=== PATIENT | male | born 1980 ===

== ENCOUNTER 2024-04-27 09:52 | Outpatient (REF) | payer OTHER, SELFPAY ==
--- NOTE | ~2024-04-27 | XR_ITS ---
EXAMINATION: XR HIP, LEFT CLINICAL INFORMATION: Pain in the left hip COMPARISON: None available. TECHNIQUE: Two views of the left hip. FINDINGS: There is irregular lucency and sclerosis along the superior medial aspect of the humeral head measuring up to 4 cm transverse. There is some subchondral irregularity. There is also marginal osteophytes along the inferior aspect of the femoral head neck junction. Surrounding bones soft tissues unremarkable. XR/XR hip LT min 2V IMPRESSION: 1. Irregular lucency and sclerosis along the superior medial aspect of the humeral head. This could reflect avascular necrosis versus sequela of the osteoarthritis given the additional osteoarthritic change.. 2. Advanced osteoarthritis of left hip versus osteoarthritis with concomitant avascular necrosis. 3. MRI would likely help differentiating these possibilities if felt clinically necessary. Electronically signed by: Micheel May MD 05/21/2024 07:30 AM EDT
[2024-04-27 12:45] LABS: Appearance Urine Clear; Color Urine Yellow; Glucose Urine UA >=1000 mg/dL (Negative); Leukocyte Esterase Urine Negative (Negative); Nitrite Urine Negative (Negative); PH 5.5 (5.0-9.0); Specific Gravity - Urine 1.025 (1.005-1.025); UMIC TRIGGER UACC YES; Urine Blood Negative (Negative); Urine Ketones Negative (Negative); Urine Protein 100 (2+) mg/dL (Neg-Trace)
[2024-04-27 13:16] LABS: Bacteria Urine None Seen (None Seen); Hyaline Casts Urine 0-2 /LPF (0-2); RBC Urine 0-2 /HPF (0-2); Squamous Epithelial Cell Urine 0-2 /HPF (0-2); WBC Urine 0-5 /HPF (0-5)
== END 2024-04-27 09:53 | disposition home or self-care (01) ==
LOC: HO.XRAY 09:52
DX: M25.552 Pain in left hip (principal); R35.89 Other polyuria; M54.50 Low back pain, unspecified; R21 Rash and other nonspecific skin eruption; R03.0 Elevated blood-pressure reading, without diagnosis of hypertension; M79.673 Pain in unspecified foot; Z71.89 Other specified counseling
CPT/HCPCS: 73502; 81001; 96127; 99202

== ENCOUNTER 2024-04-27 09:52 | Outpatient (AMB) | payer OTHER, SELFPAY ==
[2024-04-27 09:56] VITALS: BP 162/100; PULSE 119; O2SAT 98; BMI 39.1
--- NOTE | 2024-04-27 09:56 | A.OFFPC_ITS ---
Vital Signs 04/27/24 09:56 Height 5 ft 6.93 in Weight 249 lb BMI 39.1 BP 162/100 H Blood Pressure Location Lt brachial Position Sitting Pulse 119 H Pulse Source Pulse Oximeter Pulse Oximetry (%) 98 Oxygen Delivery Method Room Air Intake Visit Reasons: establish care Home Health Billing Specialist Required: Yes Home Health Billing Specialist Language: Bhutanese Cresariah Home Health Billing Specialist Name: Compa [id number] Accompanied by: Self / Same As Patient Allergies No Known Allergies Allergy (Verified 04/27/24 10:14) Medication List - Last Reconciled 04/27/24 by Nissa Hernández PA-C No Known Home Meds Tobacco use date assessed: 04/27/24 Dental Screening Dental Screen Date: 04/27/24 Did you have a dental visit in the last 12 months?: No Did you have a dental problem in the last 6 months where you did not have access to dental care?: No Was dental information given to patient?: Patient has dentist HPI establish care HPI Details 44 year old male coming to the office fo r the first time. Home Health Billing Specialist was used for the duration of the appointment. Today he tells us he has multiple medical problems and he would like to address today. First being that he is having left-sided hip pain that radiates into the groin and the left thigh. He denies any injury in can identify any provoking factors. He has bilateral heel pain worse with walking denies any injury. He also mentions he has increased thirst and urination for several months and drinks 8-10 bottles of water per day and has to use the bathroom 5-6 times every night. He denies any urinary incontinence. Also mentions nonspecific back pain that is aggravated by his sleeping positions and resolves spontaneously. He has a chronic rash on the back of his head which has been present for 7-8 years and previously evaluated while in [facility] and given shampoo. Lastly he has a lump in his scrotum and has had this in the past and was treated inhaler with vitamin E but the lump has returned. [facility] Social History Housing Other:: Senior Care Patient Tobacco Use Status: Never used Tobacco Tobacco use type: Cigarette e-Cigarette/Vaping Use: Never Used service: No Current occupational status: unemployed Cognitive needs: No Hearing needs: No Vision needs: No Questionnaire PHQ-9 Over the last 2 weeks, how often have you been bothered by any of the following problems? 1. Little interest or pleasure in doing things: not at all 2. Feeling down, depressed, or hopeless: not at all 3. Trouble falling or staying asleep, or sleeping too much: not at all 4. Feeling tired or having little energy: not at all 5. Poor appetite or overeating: not at all 6. Feeling bad about yourself - or that you are a failure or have let yourself or your family down: not at all 7. Trouble concentrating on things, such as reading the newspaper or watching television: not at all 8. Moving or speaking so slowly that other people could have noticed. Or the opposite - being so fidgety or restless that you have been moving around a lot more than usual: not at all 9. Thoughts that you would be better off or of hurting yourself in some way: not at all Total score: 0 Depression Screening Interpretation: Negative Depression Screening Done: Yes 47602 - PHQ-9 Billing: Yes Source: Developed by Drs. Joni Haas, Beth Lou, Rakan Mauricio and colleagues, with an educational karan from [employer]. Thrive Questionnaire Date Thrive assessed: 04/27/24 I am a: Patient AUDIT C Alcohol Use Questionnaire (AUDIT-C) 1. How often do you have a drink containing alcohol?: Monthly or less 2. How many drinks containing alcohol do you have on a typical day when you are drinking?: 1 or 2 3. How often do you have six or more drinks on one occasion?: Never Total Score: 1 SKY-7 AMB Questionnaire SKY-7 Date SKY - 7 assessed: 04/27/24 Feeling nervous, anxious, or on edge: 0 = Not at all Not being able to stop or control worryin = Not at all Worrying too much about different things: 0 = Not at all Trouble relaxin = Not at all Being so restless that it is hard to sit still: 0 = Not at all Becoming easily annoyed or irritable: 0 = Not at all Feeling afraid as if something awful might happen: 0 = Not at all Total SKY-7 score (0-4 normal; 5-9 mild; 10-14 moderate; 15-21 severe): 0 Source: Developed by Beth Almeida B.W. Carmine, Rakan Mauricio and colleagues, with an educational karan from [employer]. SKY-7 Assessment Billing SKY-7 Assessment Tool: SKY-7 Assessment 14143 Review of Systems Const Denies body aches, Denies fatigue, Denies fever(s), Denies frequent falls, Denies headache(s) and Denies weakness Eyes Reports no additional complaints, Reports blurry vision and Denies change in vision ENT Denies dysphagia, Denies dizziness, Denies facial pain, Denies headache(s), Denies nasal congestion and Denies odynophagia Card Denies chest pain, Denies syncope, Denies irregular heart rhythm, Denies leg edema, Denies lightheadedness and Denies dyspnea Resp Denies cough and Denies dyspnea GI Denies abdominal pain, Denies constipation, Denies dysphagia, Denies dyspepsia, Denies diarrhea, Denies nausea, Denies odynophagia and Denies vomiting Denies dysuria, Reports nocturia, Reports testicular mass, Reports urinary frequency, Denies urinary hesitancy and Denies urinary urgency Musc Details: Bilateral heel pain and left hip pain. Reports back pain (Occasional) Skin/Breast Reports as per HPI Neuro Denies dizziness, Denies syncope, Denies frequent falls, Denies headache(s) and Denies weakness Psych Reports no additional complaints Endo Denies fatigue and Reports polydipsia Physical exam (Primary Care) Vital Signs: Last Vital Signs Pulse 119 H 04/27/24 09:56 BP 162/100 H 04/27/24 09:56 Pulse Ox 98 04/27/24 09:56 Oxygen Delivery Method Room Air 04/27/24 09:56 BMI result Body Mass Index 39.1 Tobacco/Smoking Status: Tobacco use Status Tobacco use date assessed 04/27/24 04/27/24 10:11 Patient Tobacco Use Status Never used Tobacco 04/27/24 10:11 Tobacco use type Cigarette 04/27/24 10:11 e-Cigarette/Vaping Use Never Used 04/27/24 10:11 PHQ-9: PHQ-9 Score PHQ-9: Total score 0 04/27/24 10:15 Depression Screening Interpretation: Negative Thrive Assessment: Date of Thrive Assessment Date Thrive assessed 04/27/24 04/27/24 10:11 Const General: cooperative, healthy appearing, comfortable and no acute distress Orientation/consciousness: patient oriented x3 HENMT Head: Yes normocephalic Ears: hearing grossly normal bilaterally General nose exam: Normal external nose present Eyes General: appearance normal, both eyes and all related structures Conjunctivae: conjunctivae normal Neck Neck: Yes full ROM and Yes no lymphadenopathy Resp Effort & Inspection: normal respiratory effort Auscultation: clear to auscultation bilaterally, no crackles, no rales, no rhonchi and no wheezes Cardio Rate: regular rate Rhythm: regular rhythm Other: Shake Loader was present for the duration of the exam General: Yes no CVA tenderness Penis: normal penis, uncircumcised, not edematous and not erythematous Meatus: meatus normal Scrotum: scrotal mass on the left mobile and soft; not erythematous, not firm and nontender Back/Spine/Pelvis Other: No pain to palpation of spine or paraspinal muscles. No pain to palpation of hip but does have pain with abduction of the left hip Back: no CVA tenderness Skin Other: Raised bumpy flesh-colored nonerythematous nontender rash on back of scalp Neuro General: patient oriented x3 Gait exam (Neuro): Normal gait present Extrem Other: No pain to palpation of ankle or foot bilateral lower extremities. Sensation and pulses intact bilateral lower extremities. General: Yes normal to inspection, Yes full ROM and No edema Psych Affect: normal affect Attitude: cooperative Insight: Good insight present (Psych) Judgement: Good judgement present (Psych) Assessment and Plan Assessment & Plan (1) Polyuria: Code(s): R35.89 - Other polyuria Plan: Patient endorses polydipsia and polyuria often has to use the restroom 5-6 times per night. Ordered for urinalysis as well as blood work to evaluate for underlying cause. (2) Low back pain: Code(s): M54.50 - Low back pain, unspecified Plan: Patient complains of random low back pain. No tenderness to palpation on exam and appears to be more musculoskeletal in nature. Advised patient to use Tylenol and ibuprofen as needed for pain and can use [id number] topical muscle rubs. (3) Rash: Code(s): R21 - Rash and other nonspecific skin eruption Plan: Unclear etiology of rash on back of scalp. Patient was previously treated with ketoconazole shampoo. The rash is nontender and nonerythematous and has been present for 7-8 years but we will occasionally bleed while getting hair cuts. We will refer to dermatology at this time for further workup and management. (4) Elevated blood pressure reading without diagnosis of hypertension: Code(s): R03.0 - Elevated blood-pressure reading, without diagnosis of hypertension Plan: Blood pressure elevated in the office today 162/100 when retaken 160/110. Patient is unsure if his blood pressures has been elevated. We will follow up in 6 weeks for repeat blood pressure and after evaluation of labs. Patient denies any chest pain or shortness of breath at this time. Discussed red flag symptoms of high blood pressure and when to present for ER evaluation. (5) Lump in scrotum: Code(s): N50.89 - Other specified disorders of the male genital organs Plan: On exam a mass was palpated in the scrotum that was nontender, soft and mobile. Ordered for scrotal ultrasound for further evaluation and will follow up in 6 weeks. (6) Left hip pain: Code(s): M25.552 - Pain in left hip Plan: Patient states he has been having ongoing left hip pain that radiates into the groin and into the left thigh. Ordered for left hip x-ray for further evaluation. (7) Heel pain: Code(s): M79.673 - Pain in unspecified foot Plan: Patient complaining of bilateral left heel pain. No pain to palpation on exam. Advised patient to use conservative measures such as inserts for his shoes and Tylenol and ibuprofen as needed for pain. Plan This note was constructed using voice recognition software. While every effort has been made to ensure accuracy and toilet and laundry soap supervisor, still areas may have been included sometimes these areas may affect the content or meeting of the given symptoms. Total time spent caring for the patient today was 30 minutes. This includes time spent before the visit reviewing the chart, time spent during the visit, and time spent after the visit and documentation. Orders: Orders UA CC w/rflx Micro + Cult Today R35.89 - Other polyuria Complete Blood Count Auto Diff Today Z00.00 - Encounter for general adult medical examination without abnormal findings Comprehensive Met. Panel Today Z00.00 - Encounter for general adult medical examination without abnormal findings Lipid Panel Today Z00.00 - Encounter for general adult medical examination without abnormal findings Free T4 (Free Thyroxine) Today Z00.00 - Encounter for general adult medical examination without abnormal findings Hemoglobin A1c Today Z00.00 - Encounter for general adult medical examination without abnormal findings Vitamin D 25-OH (D2 and D3) Today Z00.00 - Encounter for general adult medical examination without abnormal findings XR hip LT min 2V Today M25.552 - Pain in left hip TSH reflex Free T4 Today Z00.00 - Encounter for general adult medical examination without abnormal findings Vitamin B12 and Folate Today Z00.00 - Encounter for general adult medical examination without abnormal findings PSA,Total (Free>4and<10) Today R35.89 - Other polyuria, Z00.00 - Encounter for general adult medical examination without abnormal findings US scrotum Today N50.89 - Other specified disorders of the male genital organs Referrals Dermatology Referral R21 - Rash and other nonspecific skin eruption Optometry Referral Z00.00 - Encounter for general adult medical examination without abnormal findings Coding Level of Care Code New Pt Level 4 (51754) Diagnoses Polyuria R35.89 Low back pain M54.50 Rash R21 Elevated blood pressure reading without diagnosis of hypertension R03.0 Lump in scrotum N50.89 Left hip pain M25.552 Heel pain M79.673 Additional Codes SKY-7 Assessment Billing - SKY-7 Assessment Tool: SKY-7 Assessment 19131 ([id number])
== END 2024-04-27 10:59 | disposition home or self-care (01) ==
DX: R35.89 Other polyuria (principal); M54.50 Low back pain, unspecified; R21 Rash and other nonspecific skin eruption; R03.0 Elevated blood-pressure reading, without diagnosis of hypertension; N50.89 Other specified disorders of the male genital organs; M25.552 Pain in left hip; M79.673 Pain in unspecified foot

== ENCOUNTER 2024-04-28 08:05 | Outpatient (REF) | payer OTHER, SELFPAY ==
[2024-04-28 08:19] LABS: MANUAL DIFF FLAG NO
[2024-04-28 08:25] LABS: Basophils Absolute Auto 0.1 X10*3/uL (0.0-0.2); Basophils Percent Auto 0.8 % (0-2); Eosinophils Absolute Auto 0.3 X10*3/uL (0.0-0.4); Eosinophils Percent Auto 2.8 % (0-4); Hematocrit 38.8 % (42.0-52.0); Hemoglobin 13.6 g/dl (14.0-18.0); Imm Gran Abs Auto 0.02 X10*3/uL (0.00-0.03); Imm Gran Pct Auto 0.2 % (0.0-0.4); Lymphocytes Absolute Auto 2.1 X10*3/uL (1.2-4.9); Lymphocytes Percent Auto 24.1 % (20-40); Mean Corpuscular HGB Conc 35.1 g/dl (31.0-36.0); Mean Corpuscular Hemoglobin 28.6 pg (27.0-33.0); Mean Corpuscular Volume 81.5 fL (80.0-98.0); Mean Platelet Volume 12.9 fL (9.4-12.4); Monocytes Absolute Auto 0.5 X10*3/uL (0.1-1.2); Monocytes Percent Auto 5.8 % (2-11); Neutrophils Absolute Auto 5.9 x10*3/uL (2.0-8.3); Neutrophils Percent Auto 66.3 % (45-73); Platelet Count 153 X10*3/uL (160-400); Red Blood Count 4.76 X10*6/uL (4.60-5.80); Red Cell Distribution Width 13.4 % (11.0-16.0); White Blood Count 8.8 X10*3/uL (4.8-10.8)
[2024-04-28 08:35] LABS: Estimated Average Glucose 237 mg/dL; Hemoglobin A1c % 9.9 % (<6.0)
[2024-04-28 08:59] LABS: Alanine Aminotransferase 24 U/L (0-40); Albumin Level 4.2 g/dL (3.5-5.0); Alkaline Phosphatase 58 U/L (39-117); Anion Gap 12 (12-20); Aspartate Amino Transferase 15 U/L (5-37); Bilirubin Total 0.3 mg/dL (0.0-1.0); Blood Urea Nitrogen 10 mg/dL (9-16); Carbon Dioxide 27 mmol/L (22-29); Chloride 104 mmol/L (96-108); Cholesterol 176 mg/dL (<200); Estimated Glomerular Filt Rate > 60; Glucose Random 259 mg/dL (60-115); HDL Cholesterol 43 mg/dL (>40); LDL Cholesterol Calculated 116 mg/dL (<100); Sodium 139 mmol/L (135-145); Triglycerides 89 mg/dL (<150)
[2024-04-28 09:12] LABS: PSA,Total (Free>4and<10) 2.24 ng/mL (0.00-4.00)
[2024-04-28 09:25] LABS: Folate 12.7 ng/mL (> or = 4.0); Vitamin B12 448 pg/mL (200-900)
[2024-04-28 09:46] LABS: Free T4 (Free Thyroxine) 0.84 ng/dL (0.71-1.85); TSH reflex Free T4 2.57 uIU/mL (0.32-4.0)
[2024-05-04 15:47] LABS: Vitamin D 25-OH, D2 <4 ng/mL; Vitamin D 25-OH, D3 24 ng/mL; Vitamin D 25-OH, Total 24 ng/mL (30-100)
== END 2024-04-28 08:06 | disposition home or self-care (01) ==
LOC: HO.LAB 08:05
DX: Z00.00 Encounter for general adult medical examination without abnormal findings (principal); R35.89 Other polyuria
CPT/HCPCS: 36415; 80053; 80061; 82306; 82607; 82746; 83036; 84153; 84439; 84443; 85025

== ENCOUNTER 2024-05-20 13:29 | Outpatient (REF) | payer OTHER, SELFPAY ==
--- NOTE | ~2024-05-20 | US_ITS ---
EXAMINATION: US SCROTUM CLINICAL INFORMATION: Other specified disorders of the male genital organs. COMPARISON: None available. TECHNIQUE: A sonogram of the scrotum was performed assessing tafoya-scale appearance and color Doppler flow. Spectral Doppler analysis of the arterial and venous flow were performed in the testes bilaterally. FINDINGS: RIGHT: Right testicle measures 4.0 x 2.2 x 2.7 cm, volume 12.2 mL. No focal testicular parenchymal lesions are visualized. Spectral Doppler analysis of the arterial and venous flow is normal in the right testis. Right epididymal head is normal in size. No right hydrocele or varicocele is seen. Right epididymal Doppler flow is normal. LEFT: Left testicle measures 3.7 x 1.9 x 2.3 cm, volume 8.5 mL. No focal testicular parenchymal lesions are visualized. Spectral Doppler analysis of the arterial and venous flow is normal in the left testis. Left epididymal head is slightly normal. There is a large cyst. The epididymal tail which is complex with some debris and a septation measuring 2.9 x 2.0 x 1.8 cm. No left hydrocele or varicocele is seen. Left epididymal Doppler flow is normal. US/US scrotum IMPRESSION: Complex left epididymal tail cyst measuring 2.9 cm. Electronically signed by: Vega Cárdenas MD 07/15/2024 10:58 PM [facility]
== END 2024-05-20 13:30 | disposition home or self-care (01) ==
LOC: HO.US 13:29
DX: N50.89 Other specified disorders of the male genital organs (principal)
CPT/HCPCS: 76870

== ENCOUNTER 2024-06-08 09:14 | Outpatient (AMB) | payer OTHER, SELFPAY ==
[2024-06-08 09:17] VITALS: BP 178/108; PULSE 101; O2SAT 97; BMI 40.2
--- NOTE | 2024-06-08 09:17 | MHC.PC.OV ---
Vital Signs 06/08/24 09:17 Height 5 ft 6 in Weight 249 lb BMI 40.2 BP 178/108 H Blood Pressure Location Lt brachial Position Sitting Pulse 101 H Pulse Source Pulse Oximeter Pulse Oximetry (%) 97 Oxygen Delivery Method Room Air Intake Visit Reasons: f/u BP and labs Guest Specialist Required: No Allergies No Known Allergies Allergy (Verified 06/08/24 09:18) Medication List - Last Reconciled 06/08/24 by Nissa Hernández PA-C cholecalciferol (vitamin D3) 25 mcg PO DAILY Tobacco use date assessed: 04/27/24 Dental Screening Dental Screen Date: 04/27/24 HPI f/u BP and labs HPI Details 44-year-old male coming to the office for follow up on blood pressure. In review of the notes, patient completed scrotal ultrasound for scrotal mass 05/20/2024 which is currently awaiting read. Patient has a appointment with orthopedic surgeons for left hip pain, severe osteoarthritis verses avascular necrosis, 06/25/2024. Guest Specialist was used for the duration of this visit. Patient states he is feeling generally well and has no acute concerns today. He does continue to have left-sided hip pain and has a appointment with orthopedics next month. He is also seeing Dermatology for the lesion on his scalp. He does continue to have bilateral heel pain despite trialing new shoes. [facility] Social History Housing Other:: Prison Patient Tobacco Use Status: Never used Tobacco Tobacco use type: Cigarette e-Cigarette/Vaping Use: Never Used service: No Current occupational status: unemployed Cognitive needs: No Hearing needs: No Vision needs: No Questionnaire Thrive Questionnaire Date Thrive assessed: 04/27/24 AUDIT C Alcohol Use Questionnaire (AUDIT-C) 1. How often do you have a drink containing alcohol?: Monthly or less 2. How many drinks containing alcohol do you have on a typical day when you are drinking?: 1 or 2 3. How often do you have six or more drinks on one occasion?: Never Total Score: 1 SKY-7 AMB Questionnaire SKY-7 Date SKY - 7 assessed: 04/27/24 Source: Developed by Drs. Joni Haas, Beth Lou, Rakan Mauricio and colleagues, with an educational karan from [email or web address]. Review of Systems Const Denies body aches, Denies chills and Denies fever(s) Eyes Reports no additional complaints ENT Reports no additional complaints Card Denies chest pain, Denies leg edema, Denies lightheadedness and Denies dyspnea Resp Denies dyspnea GI Denies abdominal pain, Denies nausea and Denies vomiting Reports no additional complaints Musc Reports as per HPI Skin/Breast Reports system reviewed and no additional complaints, except as documented Neuro Reports no additional complaints Physical exam (Primary Care) Vital Signs: Last Vital Signs Pulse 101 H 06/08/24 09:17 BP 178/108 H 06/08/24 09:17 Pulse Ox 97 06/08/24 09:17 Oxygen Delivery Method Room Air 06/08/24 09:17 BMI result Body Mass Index 40.2 Tobacco/Smoking Status: Tobacco use Status Tobacco use date assessed 04/27/24 06/08/24 09:18 Patient Tobacco Use Status Never used Tobacco 06/08/24 09:18 Tobacco use type Cigarette 06/08/24 09:18 e-Cigarette/Vaping Use Never Used 06/08/24 09:18 Thrive Assessment: Date of Thrive Assessment Date Thrive assessed 04/27/24 06/08/24 09:18 Const General: cooperative, healthy appearing, comfortable and no acute distress Orientation/consciousness: patient oriented x3 HENMT Head: Yes normocephalic Ears: hearing grossly normal bilaterally General nose exam: Normal external nose present Eyes General: appearance normal, both eyes and all related structures Conjunctivae: conjunctivae normal Neck Neck: Yes full ROM and Yes no lymphadenopathy Resp Effort & Inspection: normal respiratory effort Auscultation: clear to auscultation bilaterally, no crackles, no rales, no rhonchi and no wheezes Cardio Rate: regular rate Rhythm: regular rhythm Skin General skin exam: no rashes or lesions noted Neuro General: patient oriented x3 Gait exam (Neuro): Normal gait present Extrem General: Yes normal to inspection, Yes full ROM and No edema Psych Affect: normal affect Attitude: cooperative Insight: Good insight present (Psych) Judgement: Good judgement present (Psych) Coding Level of Care Code Est Pt Level 4 (63123) Diagnoses Lump in scrotum N50.89 Diabetes mellitus E11.9 Hypertension I10 Left hip pain M25.552 Heel pain M79.673 Assessment & Plan Assessment & Plan (1) Lump in scrotum: Code(s): N50.89 - Other specified disorders of the male genital organs Category: Medical Plan: Patient underwent scrotal ultrasound currently awaiting the read. (2) Diabetes mellitus: Code(s): E11.9 - Type 2 diabetes mellitus without complications Category: Medical Plan: Decrease the amount of carbohydrates such as pasta, bread, rice, and potatoes and limit the amount of sweets. Although fruits are generally healthy they should be eaten in moderation as they are still high in sugar. Hemoglobin A1c goal of less than 7%. A1c 9.9% started on metformin b.i.d. and discussed lifestyle changes. Declines insulin at this time (3) Hypertension: Code(s): I10 - Essential (primary) hypertension Category: Medical Plan: Blood pressure elevated once again on exam today 170/108. We will start on amlodipine 5 mg and follow up at next visit. Avoid salt intake and encourage healthy diet and regular exercise. (4) Left hip pain: Code(s): M25.552 - Pain in left hip Category: Medical Plan: Patient complaining of left hip pain x-ray showed severe osteoarthritis versus avascular necrosis of left hip. Patient has appointment with Orthopedics next month and prescription sent for diclofenac gel and ibuprofen. (5) Heel pain: Code(s): M79.673 - Pain in unspecified foot Category: Medical Plan: Patient complaining of bilateral heel pain. Referral placed for Podiatry patient was advised on stretching and strengthening exercises. Prescription placed for diabetic shoes as well. Plan This note was constructed using voice recognition software. While every effort has been made to ensure accuracy and electronic parts salesperson, still areas may have been included sometimes these areas may affect the content or meeting of the given symptoms. Total time spent caring for the patient today was 30 minutes. This includes time spent before the visit reviewing the chart, time spent during the visit, and time spent after the visit and documentation. Orders: Referrals Podiatry Referral E11.9 - Type 2 diabetes mellitus without complications Medications: New [diabetic shoes] As directed 1 ea 0RF diclofenac sodium 1% (Arthritis Pain (diclofenac)) apply to single elbow, wrist or hand; for hand includes palm/fingers/back of hand 2 grams topical QID 100 grams 0RF ibuprofen 400 mg PO Q8H PRN 20 tabs 1RF pain metformin 500 mg PO BID 30 days 60 tabs 3RF amlodipine 5 mg PO DAILY 30 tabs 3RF
== END 2024-06-08 10:04 | disposition home or self-care (01) ==
LOC: HO.HMCH 09:14
DX: N50.89 Other specified disorders of the male genital organs (principal); E11.9 Type 2 diabetes mellitus without complications; I10 Essential (primary) hypertension; M25.552 Pain in left hip; M79.673 Pain in unspecified foot

== ENCOUNTER → 2024-06-08 09:14 | Outpatient (BNVA) | payer OTHER, SELFPAY | DX: N50.89 Other specified disorders of the male genital organs (principal); E11.9 Type 2 diabetes mellitus without complications; I10 Essential (primary) hypertension; M25.552 Pain in left hip; M79.673 Pain in unspecified foot | CPT/HCPCS: 99212 ==

== ENCOUNTER 2024-06-17 07:27 | Outpatient (REF) | payer OTHER, SELFPAY ==
--- NOTE | ~2024-06-17 | MR_ITS ---
EXAMINATION: MR HIP WITHOUT CONTRAST, LEFT CLINICAL INFORMATION: Hip pain. Evaluate for avascular necrosis versus arthritis. COMPARISON: X-ray 04/27/2024. TECHNIQUE: MRI of the left hip was obtained using routine sequences on a high-field magnet. FINDINGS: BONE/JOINTS: Left hip joint space loss, nonuniform chondral thinning and irregularity, prominent femoral head osteophytes, acetabular marginal osteophytes, subchondral acetabular cysts and edema. Findings correlate with moderate arthritis. Confluent heterogeneous T2 signal in the subchondral femoral head, heterogeneous low T1 signal, with serpiginous margins. This overall measures approximately 3.7 cm AP, 3.4 cm transverse. The appearance is more suggestive of a focus of avascular necrosis. There is undulation of the femoral head cortical articular surface, consistent with subchondral collapse. There may be a component of degenerative changes also contributing to the femoral head findings. Osseous prominence at the anterior femoral head and neck junction. Increased Alpha angle measuring 15-degrees. This may predispose to femoral acetabular impingement. LABRUM: Anterosuperior labral degeneration with fraying/tear. MUSCLES/TENDONS: Mild gluteus minimus and medius tendinosis. Mild common hamstring tendinosis. No muscle tear is seen. JOINT FLUID/BURSA: No significant joint effusion. No significant greater trochanteric or iliopsoas bursitis. INTRAPELVIS STRUCTURES: Subcentimeter left groin lymph nodes. The bladder is nondistended. On the coronal T1 sequence of the pelvis, there is abnormal low T1 signal in the right femoral head, with subjacent margins, measuring 3.2 cm transverse. Findings are suspicious for a focus of avascular necrosis. Mild bilateral SI joint arthritis suspected. MR/MR hip LT wo con IMPRESSION: 1. Moderate left hip arthritis. 2. Abnormal signal in the left femoral head, appearance most suggestive of a focus avascular necrosis. This measures approximately 3.7 x 3.4 cm. There is abnormal findings of the femoral head contour, consistent with subchondral collapse. There may be a component of superimposed degenerative changes causing the femoral head findings. 3. Anterosuperior labral degenerative fraying/tear. 4. Mild distal gluteus minimus and medius tendinosis. Mild common hamstring tendinosis. 5. Abnormal findings in the right femoral head suspicious for focus of avascular necrosis. Electronically signed by: Gregorio Lopes MD 06/23/2024 06:36 PM EST
== END 2024-06-17 07:28 | disposition home or self-care (01) ==
LOC: HO.MRI 07:27
DX: M25.552 Pain in left hip (principal)
CPT/HCPCS: 73721

== ENCOUNTER 2024-06-25 09:33 | Outpatient (AMB) | payer OTHER, SELFPAY ==
[2024-06-25 10:03] VITALS: BMI 40.2
--- NOTE | 2024-06-25 10:03 | MHC.OFFVIS ---
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 Hx of DM. MRI ordered by PCP done on 06/17/24. He is using diclofenac topical gel and taking Ibuprofen prescribed by PCP. Patient reports that he has had ongoing hip pain for about 5-6 years now. No previous treatments. His hip is felt on the lateral aspect of the hip and increases with carrying heavy objects, this makes him feel off balance. Denies numbness and tingling in the leg. Wood Machine Carver Required: Yes Wood Machine Carver Language: Ivan Nair Wood Machine Carver Name: [id number] Allergies No Known Allergies Allergy (Verified 06/25/24 10:14) HPI HPI SYSTEMS SOFTWARE SPECIALIST- Left hip pain: Details: This is a 44-year-old gentleman with severe pain in his left hip. He walks with a limp. He states this has been going on for a few years now. Most of his pain is in the groin. [facility] Social History Housing Other:: [facility]iary Patient Tobacco Use Status: Never used Tobacco Tobacco use type: Cigarette e-Cigarette/Vaping Use: Never Used service: No Current occupational status: unemployed Cognitive needs: No Hearing needs: No Vision needs: No Physical Exam Vital Signs: BMI result Body Mass Index 40.2 Extrem Other: Gait antalgia with a Trendelenburg gait on the left and positive impingement sign on the left. Results Reviewed Results Reviewed: Radiographs show left hip AVN with collapse. MRI confirms this. 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 He does not feel like he can do surgery at this time given some concerns about his living situation. I ordered an injection of his hip which may help stave off replacement as well as physical therapy and recommend NSAIDs as tolerated. He will contact me if he would like to proceed forward with surgery. Coding Level of Care Code New Pt Level 4 (83432) Diagnoses Primary localized osteoarthritis of left hip M16.12
== END 2024-06-25 10:51 | disposition home or self-care (01) ==
PROVIDERS: Visit Provider Orthopaedic Surgery
DX: M16.12 Unilateral primary osteoarthritis, left hip (principal)
CPT/HCPCS: 99204

== ENCOUNTER → 2024-06-25 09:33 | Outpatient (BNVA) | payer OTHER, SELFPAY | PROVIDERS: Visit Provider Orthopaedic Surgery | DX: M16.12 Unilateral primary osteoarthritis, left hip (principal); R26.89 Other abnormalities of gait and mobility | CPT/HCPCS: 99202 ==

== ENCOUNTER 2024-09-09 08:20 | Outpatient (AMB) | payer OTHER, SELFPAY ==
--- NOTE | 2024-09-09 08:43 | A.OFFPC_ITS ---
Vital Signs 09/09/24 08:45 Height 5 ft 6 in Weight 245 lb 2 oz BMI 39.6 BP 140/76 H Blood Pressure Location Lt brachial Position Sitting Pulse 101 H Pulse Source Pulse Oximeter Temp 96.9 F Temp Source Skin Pulse Oximetry (%) 97 Oxygen Delivery Method Room Air Intake Visit Reasons: f/u dm and htn Intake Note: Patient is here to follow up on DM, HTN. Senior Sas Developer Required: No Property Management Accountant: Not Required per policy Accompanied by: Self / Same As Patient Allergies No Known Allergies Allergy (Verified 09/09/24 08:45) Medication List - Last Reconciled 09/09/24 by Nissa Hernández PA-C amlodipine 10 mg PO DAILY cholecalciferol (vitamin D3) 25 mcg PO DAILY [diabetic shoes As directed] diclofenac sodium 1% (Arthritis Pain (diclofenac)) 2 grams topical QID ibuprofen 400 mg PO Q8H PRN metformin 1,000 mg PO BIDWMEAL 90 days Tobacco use date assessed: 09/09/24 Dental Screening Dental Screen Date: 09/09/24 Did you have a dental visit in the last 12 months?: Yes Did you have a dental problem in the last 6 months where you did not have access to dental care?: No Was dental information given to patient?: Patient has dentist HPI f/u dm and htn HPI Details 44-year-old male with past medical histo ry of hypertension, diabetes mellitus last seen 05/2024 coming in for follow up on diabetes.? 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 alarm signaler Rosy [id number] was used for the duration of this visit. He states he has been taking his medications amlodipine 10 mg and metformin 500 mg b.i.d. without any issue and denies any side effects this time. He has no acute concerns today however he does mentioned that his hip pain continues to be uncontrolled with the NSAIDs and cortisone injection given by Orthopedics and would like to be re-evaluated. [facility] Social History Housing Other:: Assisted Patient Tobacco Use Status: Never used Tobacco Tobacco use type: Cigarette e-Cigarette/Vaping Use: Never Used Second Hand Smoke Exposure: No service: No Current occupational status: unemployed Cognitive needs: No Hearing needs: No Vision needs: No Questionnaire PHQ-9 Over the last 2 weeks, how often have you been bothered by any of the following problems? 1. Little interest or pleasure in doing things: not at all 2. Feeling down, depressed, or hopeless: not at all 3. Trouble falling or staying asleep, or sleeping too much: not at all 4. Feeling tired or having little energy: not at all 5. Poor appetite or overeating: not at all 6. Feeling bad about yourself - or that you are a failure or have let yourself or your family down: not at all 7. Trouble concentrating on things, such as reading the newspaper or watching television: not at all 8. Moving or speaking so slowly that other people could have noticed. Or the opposite - being so fidgety or restless that you have been moving around a lot more than usual: not at all 9. Thoughts that you would be better off or of hurting yourself in some way: not at all Total score: 0 Depression Screening Interpretation: Negative Depression Screening Done: Yes Source: Developed by Drs. Joni Haas, Beth Lou, Rakan Mauricio and colleagues, with an educational karan from 1-4 All. Thrive Questionnaire Date Thrive assessed: 09/09/24 I am a: Patient What is your living situation today?: I have a steady place to live Within the past 12 months, did the food you bought not last and you didn't have the money to get more?: Never true Within the past 12 months, did you worry whether your food would run out before you got money to buy more?: Never true Do you have trouble paying for medicines?: No Do you have trouble getting transportation to medical appointments?: No Do you have trouble paying your heating and electricity bill?: No Do you have trouble taking care of your child, family member or friend?: No Do you have trouble with day-to-day activities such as bathing, preparing meals, shopping, managing finances, etc.?: No Are you currently unemployed and looking for a job?: No Are you interested in more education?: No Please select the resources that you would like help with: None Currently or been in a relationship where the following occur: No concerns reported THRIVE Score: 0 AUDIT C Alcohol Use Questionnaire (AUDIT-C) 1. How often do you have a drink containing alcohol?: Monthly or less 2. How many drinks containing alcohol do you have on a typical day when you are drinking?: 1 or 2 Total Score: 1 SKY-7 AMB Questionnaire SKY-7 Date SKY - 7 assessed: 09/09/24 Feeling nervous, anxious, or on edge: 0 = Not at all Not being able to stop or control worryin = Not at all Worrying too much about different things: 0 = Not at all Trouble relaxin = Not at all Being so restless that it is hard to sit still: 0 = Not at all Becoming easily annoyed or irritable: 0 = Not at all Feeling afraid as if something awful might happen: 0 = Not at all Total SKY-7 score (0-4 normal; 5-9 mild; 10-14 moderate; 15-21 severe): 0 Source: Developed by Drs. Joni Haas, Beth Lou, Rakan Mauricio and colleagues, with an educational karan from 1-4 All. Review of Systems Const Denies body aches, Denies chills, Denies fever(s), Denies headache(s) and Denies poor appetite Eyes Reports no additional complaints ENT Denies dysphagia, Denies dizziness, Denies headache(s) and Denies odynophagia Card Denies chest pain, Denies syncope, Denies edema, Denies irregular heart rhythm, Denies lightheadedness and Denies dyspnea Resp Denies cough and Denies dyspnea GI Denies abdominal pain, Denies constipation, Denies dysphagia, Denies diarrhea, Denies nausea, Denies odynophagia and Denies vomiting Reports no additional complaints Musc Reports no additional complaints and Denies abnormal gait Skin/Breast Reports system reviewed and no additional complaints, except as documented Neuro Denies abnormal gait, Denies dizziness, Denies syncope and Denies headache(s) Psych Reports no additional complaints Physical exam (Primary Care) Vital Signs: Last Vital Signs Temp 96.9 F 09/09/24 08:45 Pulse 101 H 09/09/24 08:45 BP 140/76 H 09/09/24 08:45 Pulse Ox 97 09/09/24 08:45 Oxygen Delivery Method Room Air 09/09/24 08:45 BMI result Body Mass Index 39.6 Tobacco/Smoking Status: Tobacco use Status Tobacco use date assessed 09/09/24 09/09/24 08:45 Patient Tobacco Use Status Never used Tobacco 09/09/24 08:44 Tobacco use type Cigarette 09/09/24 08:44 e-Cigarette/Vaping Use Never Used 09/09/24 08:44 PHQ-9: PHQ-9 Score PHQ-9: Total score 0 09/09/24 08:55 Depression Screening Interpretation: Negative Thrive Assessment: Date of Thrive Assessment Date Thrive assessed 09/09/24 09/09/24 08:44 Currently or been in a relationship where the following occur: No concerns reported Const General: cooperative, healthy appearing, comfortable and no acute distress Orientation/consciousness: patient oriented x3 HENMT Head: Yes normocephalic Ears: hearing grossly normal bilaterally General nose exam: Normal external nose present Eyes General: appearance normal, both eyes and all related structures Conjunctivae: conjunctivae normal Neck Neck: Yes full ROM and Yes no lymphadenopathy Resp Effort & Inspection: normal respiratory effort Auscultation: clear to auscultation bilaterally, no crackles, no rales, no rhonchi and no wheezes Cardio Rate: regular rate Rhythm: regular rhythm Skin General skin exam: no rashes or lesions noted Neuro General: patient oriented x3 Gait exam (Neuro): Normal gait present Extrem General: Yes normal to inspection, Yes full ROM and No edema Psych Affect: normal affect Attitude: cooperative Insight: Good insight present (Psych) Judgement: Good judgement present (Psych) Results AMB Hemoglobin A1c AMB Hemoglobin A1c 7.5 % Last Edit by TRUDI Webber on 09/09/24 08:58 Results Reviewed Results Reviewed: Laboratory Last Values Hgb A1c (Clinic) 7.5 % (4.0-6.0) H 09/09/24 08:44 Coding Level of Care Code Est Pt Level 4 (08782) Diagnoses Scrotal cyst L72.9 Primary localized osteoarthritis of left hip M16.12 Primary hypertension I10 Hypertension type: primary hypertension Type 2 diabetes mellitus with hyperglycemia, without long-term current use of insulin E11.65 Diabetes mellitus type: type 2 Diabetes mellitus mcfp insulin use: without mcfp use Diabetes mellitus complication status: with hyperglycemia Hypercholesterolemia E78.00 Assessment & Plan Assessment & Plan (1) Scrotal cyst: Code(s): L72.9 - Follicular cyst of the skin and subcutaneous tissue, unspecified Category: Medical Plan: Patient found to have scrotal cyst on scrotal US. He will see urologist next month for evaluation. (2) Primary localized osteoarthritis of left hip: Code(s): M16.12 - Unilateral primary osteoarthritis, left hip Category: Medical Plan: Patient recently seen by Orthopedics and was given cortisone injection and would like to re-evaluated as his pain is not well managed. Advised patient to reach out to orthopedics to schedule additional appointment. (3) Hypertension: Code(s): I10 - Essential (primary) hypertension Category: Medical Qualifiers: Hypertension type: primary hypertension Qualified Code(s): I10 - Essential (primary) hypertension Plan: Blood pressure elevated today 140/76 and remain elevated when retaken. Plan to increase amlodipine to 10 mg and follow up at next visit. Avoid salt intake and encourage healthy diet and regular exercise. (4) Diabetes mellitus: Code(s): E11.9 - Type 2 diabetes mellitus without complications Category: Medical Qualifiers: Diabetes mellitus type: type 2 Diabetes mellitus business analysis consultant insulin use: without mcfp use Diabetes mellitus complication status: with hyperglycemia Qualified Code(s): E11.65 - Type 2 diabetes mellitus with hyperglycemia Plan: Decrease the amount of carbohydrates such as pasta, bread, rice, and potatoes and limit the amount of sweets. Although fruits are generally healthy they should be eaten in moderation as they are still high in sugar. Hemoglobin A1c goal of less than 7%. A1c improved from 9.9% to 7.5% today with diet modification and metformin 500 mg b.i.d. plan to increase metformin further to 1000 mg b.i.d. and follow up in 3 months for repeat A1c. Referral placed to ophthalmology as well as gatekeeper. (5) Hypercholesterolemia: Code(s): E78.00 - Pure hypercholesterolemia, unspecified Category: Medical Plan: Avoid foods that are high in cholesterol such as red meat, fried foods, eggs and baked goods. Triglyceride goal of less than 150 and LDL goal of less than 100. Cholesterol mildly elevated above goal on last blood work patient would like to work on diet and exercise before starting medical management. We will plan to repeat cholesterol labs in 3 months. Orders: Orders AMB Hemoglobin A1c Today E11.9 - Type 2 diabetes mellitus without complications Referrals Optometry Referral E11.9 - Type 2 diabetes mellitus without complications Medications: New metformin 1,000 mg PO BIDWMEAL 90 days 180 tabs 0RF amlodipine 10 mg PO DAILY 90 tabs 0RF Discontinued metformin Discontinued Reason: Patient no longer taking 500 mg PO BID 90 days 180 tabs 1RF E11.9 - Type 2 diabetes mellitus without complications amlodipine Discontinued Reason: Patient no longer taking 5 mg PO DAILY 90 tabs 0RF
[2024-09-09 08:45] VITALS: BP 140/76; PULSE 101; TEMP 36.1; O2SAT 97; BMI 39.6
== END 2024-09-09 09:24 | disposition home or self-care (01) ==
DX: L72.9 Follicular cyst of the skin and subcutaneous tissue, unspecified (principal); M16.12 Unilateral primary osteoarthritis, left hip; I10 Essential (primary) hypertension; E11.65 Type 2 diabetes mellitus with hyperglycemia; E78.00 Pure hypercholesterolemia, unspecified; E11.9 Type 2 diabetes mellitus without complications

== ENCOUNTER → 2024-09-09 08:20 | Outpatient (BNVA) | payer OTHER, SELFPAY | DX: L72.9 Follicular cyst of the skin and subcutaneous tissue, unspecified (principal); M16.12 Unilateral primary osteoarthritis, left hip; I10 Essential (primary) hypertension; E78.00 Pure hypercholesterolemia, unspecified; E11.65 Type 2 diabetes mellitus with hyperglycemia | CPT/HCPCS: 83036; 99212 ==

== ENCOUNTER 2024-09-29 15:24 | Outpatient (AMB) | payer OTHER, SELFPAY ==
--- NOTE | 2024-09-29 15:30 | A.OFFVIS_ITS ---
Intake Visit Reasons: complex epididymal cyst Intake Note: New Patient presents for initial visit for complex epididymal cyst Urology Medications: none Blood Thinner: none Financial Reporting Analyst Required: Yes Accompanied by: Self / Same As Patient Allergies No Known Allergies Allergy (Verified 09/29/24 15:40) HPI Comments Details: Jose Guadalupe is a pleasant male. He is a patient of . he is seen for the following urologic conditions - spermatocele Left Spermatocele interested in intervention scrotal ultrasound - Left epididymal head is slightly normal. There is a large cyst. The epididymal tail which is complex with some debris and a septation measuring 2.9 x 2.0 x 1.8 cm recommend spermatocelectomy [facility] Social History Housing Other:: Longterm Patient Tobacco Use Status: Never used Tobacco Tobacco use type: Cigarette e-Cigarette/Vaping Use: Never Used Second Hand Smoke Exposure: No service: No Current occupational status: unemployed Cognitive needs: No Hearing needs: No Vision needs: No Review of Systems Const Denies chills and Denies fever(s) Card Reports no additional complaints and Denies syncope Resp Denies cough GI Denies abdominal pain and Denies heartburn Reports as per HPI and Denies change in libido Neuro Denies syncope Psych Denies change in libido Endo Denies change in libido Physical Exam Const General: cooperative, healthy appearing, comfortable and no acute distress Orientation/consciousness: patient oriented x3 HEENT Face and sinus: Yes normal facial exam Mouth: moist mucous membranes Neck Neck: Yes normal visual inspection, Yes full ROM and Yes trachea midline Chest Chest palpation & inspection: normal inspection of the chest Resp Effort & Inspection: normal respiratory effort, able to speak in complete sentences and no respiratory distress GI Inspection: Yes normal to inspection Back/Spine/Pelvis Cervical Spine: normal cervical lordosis Thoracic/Lumbar Spine: thoracic and lumbar spine normal to inspection Skin General skin exam: no rashes or lesions noted Neuro General: patient oriented x3, gait normal, tone normal and moves all extremities Extrem General: Yes normal to inspection and Yes capillary refill normal Assessment & Plan Assessment & Plan (1) Spermatocele: Code(s): N43.40 - Spermatocele of epididymis, unspecified Category: Medical Plan Risks, benefits and alternatives to therapy were discussed. These include but are not limited to infection, bleeding, damage to local organs and tissues, need for further interventions. Anesthetic risks regarding cardiac arrhythmia, blood clots, and potential mortality were discussed. The patient understands the typical recovery time and the outpatient nature of the procedure. After consideration of these risks the patient gives full informed consent and they wish to move ahead with the procedure. left spermatocelectomy Patient Instructions: This note is constructed using voice recognition software. While every effort has been made to ensure accuracy billing clerk errors may have been included. Imaging studies, laboratory and physical exam results were discussed and reviewed in detail. No major barriers to patient understanding were identified. An opportunity to ask questions regarding the treatment plan was provided. All questions were answered. The patient expressed understanding and agreement with the above treatment plan. The patient is aware they should contact our office by phone for worsening of their current condition or the appearance of new urologic symptoms. Compliance is encouraged with any medications and followup testing that is ordered. It is a privilege to participate in the urologic care of your patient. If you have any questions or concerns regarding treatment for the above conditions, or other urologic issues, please do not hesitate to contact me. The office telephone contact is [phone]. Sincerely, Dr Maurizio Skinner MD, [facility] - Urology Compassionate Specialist Care for the Genitourinary System Coding Level of Care Code New Pt Level 4 (25760) Diagnoses Spermatocele N43.40
== END 2024-09-29 16:03 | disposition home or self-care (01) ==
PROVIDERS: Visit Provider Urology
DX: N43.40 Spermatocele of epididymis, unspecified (principal)
CPT/HCPCS: 99204

== ENCOUNTER → 2024-09-29 15:24 | Outpatient (BNVA) | payer OTHER, SELFPAY | PROVIDERS: Visit Provider Urology | DX: N43.40 Spermatocele of epididymis, unspecified (principal) | CPT/HCPCS: 99202 ==

== ENCOUNTER 2024-12-09 08:48 | Outpatient (REF) | payer OTHER, SELFPAY ==
--- NOTE | ~2024-12-09 | XR_ITS ---
EXAMINATION: XR CHEST 2 VIEWS HISTORY: R06.02 - Shortness of breath COMPARISON: There are no prior studies for comparison. FINDINGS: PA and lateral views of the chest are submitted. The lungs are expanded and clear. There is no pleural effusion, pneumothorax, or pulmonary vascular congestion. The heart is normal in size. The bones are intact. XR/XR chest 2V IMPRESSION: Clear lungs. Electronically signed by: Joni Weller MD 12/10/2024 10:18 AM EDT
[2024-12-09 11:36] LABS: Cholesterol 168 mg/dL (<200); HDL Cholesterol 40 mg/dL (>40); LDL Cholesterol Calculated 114 mg/dL (<100); Triglycerides 72 mg/dL (<150)
[2024-12-09 11:40] LABS: B Type Natriuretic Peptide < 10 pg/mL (<100)
== END 2024-12-09 08:49 | disposition home or self-care (01) ==
LOC: HO.XRAY 08:48
DX: E78.00 Pure hypercholesterolemia, unspecified (principal); E11.65 Type 2 diabetes mellitus with hyperglycemia; N43.40 Spermatocele of epididymis, unspecified; I10 Essential (primary) hypertension; R06.02 Shortness of breath; Z79.84 Long term (current) use of oral hypoglycemic drugs; Z79.899 Other long term (current) drug therapy
CPT/HCPCS: 36415; 71046; 80061; 83036; 83880; 99212

== ENCOUNTER 2024-12-09 08:48 | Outpatient (AMB) | payer OTHER, SELFPAY ==
[2024-12-09 09:06] VITALS: BP 140/98; PULSE 87; TEMP 36.4; O2SAT 98; BMI 38.2
--- NOTE | 2024-12-09 09:06 | A.OFFPC_ITS ---
Vital Signs 12/09/24 09:06 Height 5 ft 6 in Weight 237 lb BMI 38.2 BP 140/98 H Blood Pressure Location Lt brachial Position Sitting Pulse 87 Pulse Source Pulse Oximeter Temp 97.5 F Temp Source Skin Pulse Oximetry (%) 98 Oxygen Delivery Method Room Air Intake Visit Reasons: 3 MONTH F/U Intake Note: Patient here for a 3 month follow up Supervisor Machine Setter Required: Yes Supervisor Machine Setter Language: Ivan Nair Accompanied by: Self / Same As Patient Allergies No Known Allergies Allergy (Verified 12/09/24 09:19) Medication List - Last Reconciled 12/09/24 by Nissa Hernández PA-C amlodipine 10 mg PO DAILY cholecalciferol (vitamin D3) 25 mcg PO DAILY [diabetic shoes As directed] diclofenac sodium 1% (Arthritis Pain (diclofenac)) 2 grams topical QID ibuprofen 400 mg PO Q8H PRN metformin 1,000 mg PO BIDWMEAL 90 days Tobacco use date assessed: 09/09/24 Dental Screening Dental Screen Date: 09/09/24 HPI 3 MONTH F/U HPI Details 44-year-old male with past medical histo ry of hypertension, diabetes mellitus last seen 08/2024 coming in for follow up on diabetes.? In review of the notes, patient was seen by Urology 10/2024 for left spermatocele urologist recommended spermatocelectomy.? Jeronimo Nair aoc director combat plans officer Val [id number] used for the duration of this visit. Presenting for a follow-up on diabetes and surgical clearance. Diabetes is managed with metformin but is inconsistently taken, affecting glucose control. HbA1c has improved to 7.2%. Blood pressure is managed with amlodipine but remains elevated, with reports of associated neck pain with elevated levels. The occurrence of shortness of breath without a consistent pattern, potentially related to late-night eating, suggests further investigation into possible sleep apnea. Patient reporting intermittent shortness of breath associated with late night eating does not occur when patient does not eat close to bedtime. He also mentions occasional intermittent shortness of breath without consistent pattern that happens while he is driving. [facility] Surgical History No pertinent past surgical history Social History Housing: Other Housing Other:: [facility] Alcohol intake: current Alcohol intake frequency: holidays/special occasions only Alcohol type: other Patient Tobacco Use Status: Never used Tobacco e-Cigarette/Vaping Use: Never Used Second Hand Smoke Exposure: No service: No Current occupational status: unemployed Cognitive needs: No Hearing needs: No Vision needs: No Questionnaire Thrive Questionnaire Date Thrive assessed: 09/09/24 SKY-7 AMB Questionnaire SKY-7 Date SKY - 7 assessed: 09/09/24 Source: Developed by Drs. Joni Haas, Beth Lou, Rakan Mauricio and colleagues, with an educational karan from [employer]. Review of Systems Const Denies body aches, Denies chills, Denies fever(s), Denies headache(s) and Denies poor appetite Eyes Reports no additional complaints ENT Denies dysphagia, Denies dizziness and Denies headache(s) Card Denies chest pain, Denies syncope, Denies edema, Denies irregular heart rhythm, Denies lightheadedness and Reports dyspnea (As per HPI) Resp Denies cough and Reports dyspnea (As per HPI) GI Denies dysphagia, Denies nausea and Denies vomiting Reports no additional complaints Musc Reports no additional complaints and Denies abnormal gait Skin/Breast Reports system reviewed and no additional complaints, except as documented Neuro Denies abnormal gait, Denies dizziness, Denies syncope and Denies headache(s) Psych Reports no additional complaints Physical exam (Primary Care) Vital Signs: Last Vital Signs Temp 97.5 F 12/09/24 09:06 Pulse 87 12/09/24 09:06 BP 140/98 H 12/09/24 09:06 Pulse Ox 98 12/09/24 09:06 Oxygen Delivery Method Room Air 12/09/24 09:06 BMI result Body Mass Index 38.2 Tobacco/Smoking Status: Tobacco use Status Tobacco use date assessed 09/09/24 12/09/24 09:08 Patient Tobacco Use Status Never used Tobacco 12/09/24 09:13 Tobacco use type 12/09/24 09:13 e-Cigarette/Vaping Use Never Used 12/09/24 09:13 Thrive Assessment: Date of Thrive Assessment Date Thrive assessed 09/09/24 12/09/24 09:08 Const General: cooperative, healthy appearing, comfortable and no acute distress Orientation/consciousness: patient oriented x3 HENMT Head: Yes normocephalic Ears: hearing grossly normal bilaterally General nose exam: Normal external nose present Eyes General: appearance normal, both eyes and all related structures Conjunctivae: conjunctivae normal Neck Neck: Yes full ROM and Yes no lymphadenopathy Resp Effort & Inspection: normal respiratory effort Auscultation: clear to auscultation bilaterally, no crackles, no rales, no rhonchi and no wheezes Cardio Rate: regular rate Rhythm: regular rhythm Skin General skin exam: no rashes or lesions noted Neuro General: patient oriented x3 Gait exam (Neuro): Normal gait present Extrem General: Yes normal to inspection, Yes full ROM and No edema Psych Affect: normal affect Attitude: cooperative Insight: Good insight present (Psych) Judgement: Good judgement present (Psych) Results AMB Hemoglobin A1c AMB Hemoglobin A1c 7.2 % Last Edit by TRUDI Brown on 12/09/24 09:1 4 Results Reviewed Results Reviewed: Laboratory Last Values Hgb A1c (Clinic) 7.2 % (4.0-6.0) H 12/09/24 09:14 Coding Level of Care Code Est Pt Level 4 (04426) Diagnoses Hypercholesterolemia E78.00 Type 2 diabetes mellitus with hyperglycemia, without long-term current use of insulin E11.65 Diabetes mellitus complication status: with hyperglycemia Diabetes mellitus meterman insulin use: without meterman use Diabetes mellitus type: type 2 Spermatocele N43.40 Primary hypertension I10 Hypertension type: primary hypertension Shortness of breath R06.02 Assessment & Plan Assessment & Plan (1) Hypercholesterolemia: Code(s): E78.00 - Pure hypercholesterolemia, unspecified Category: Medical Plan: Avoid foods that are high in cholesterol such as red meat, fried foods, eggs and baked goods. Triglyceride goal of less than 150 and LDL goal of less than 100. LDL 116 on last labs has been working on dietary management plan to repeat labs for further evaluation. (2) Diabetes mellitus: Code(s): E11.9 - Type 2 diabetes mellitus without complications Category: Medical Qualifiers: Diabetes mellitus complication status: with hyperglycemia Diabetes mellitus senior care insulin use: without meterman use Diabetes mellitus type: type 2 Qualified Code(s): E11.65 - Type 2 diabetes mellitus with hyperglycemia Plan: Decrease the amount of carbohydrates such as pasta, bread, rice, and potatoes and limit the amount of sweets. Although fruits are generally healthy they should be eaten in moderation as they are still high in sugar. Hemoglobin A1c goal of less than 7%. A1c in the clinic 7.2%. Patient in consistently taking his metformin. Plan to continue on metformin 1000 mg twice daily advised patient to adhere to dosing schedule. If medication compliance becomes an issue we can consider weekly injections (3) Spermatocele: Code(s): N43.40 - Spermatocele of epididymis, unspecified Category: Medical Plan: Patient is currently following with Urology planned to have a spermatocelectomy with Dr. Skinner in January. (4) Hypertension: Code(s): I10 - Essential (primary) hypertension Category: Medical Qualifiers: Hypertension type: primary hypertension Qualified Code(s): I10 - Essential (primary) hypertension Plan: Blood pressure on exam today is elevated. He does take his amlodipine faithfully every day. Plan to add losartan to medication regimen follow up in 3 weeks with nursing navigation. Avoid salt intake and encourage healthy diet and regular exercise. (5) Shortness of breath: Code(s): R06.02 - Shortness of breath Category: Medical Plan: Patient complaining of intermittent shortness of breath with no apparent pattern. He does have shortness of breath associated with eating late at night. Advised patient to avoid eating 3-4 hours prior to bedtime as this is likely a result of acid reflux. Plan to obtain chest x-ray and blood work for further evaluation. Also plan to obtain sleep study and pulmonary function testing for further evaluation. I reviewed with patient red flag symptoms and when to present for re-evaluation. Lungs are clear to auscultation today. Plan During this visit, I reviewed the patient's current diabetes management and emphasized adherence to metformin twice daily. For hypertension control, we will add lisinopril to the current amlodipine therapy due to elevated blood pressure readings. Evaluations for sleep apnea are important due to reported breathing difficulties, with planned pulmonary and sleep studies. Further cholesterol testing is necessary to manage dyslipidemia. Follow-up appointments with a nurse navigator in three weeks and a repeat visit in three months will maintain continuity of care. This note was constructed using voice recognition software. While every effort has been made to ensure accuracy and plunket nurse, still areas may have been included sometimes these areas may affect the content or meeting of the given symptoms. Total time spent caring for the patient today was 20 minutes. This includes time spent before the visit reviewing the chart, time spent during the visit, and time spent after the visit and documentation. Patient was informed and verbally consented to the use of an ambient scribe for clinic note documentation during this visit. Orders: Orders Lipid Panel Today E78.00 - Pure hypercholesterolemia, unspecified RT home sleep study Today R06.02 - Shortness of breath XR chest 2V Today R06.02 - Shortness of breath AMB Hemoglobin A1c Today E11.65 - Type 2 diabetes mellitus with hyperglycemia PFT pulmonary function test Today R06.02 - Shortness of breath B Type Natriuretic Peptide Today R06.02 - Shortness of breath Medications: New losartan 25 mg PO DAILY 90 tabs 1RF
== END 2024-12-09 09:57 | disposition home or self-care (01) ==
LOC: HO.HMCH 08:48
DX: E78.00 Pure hypercholesterolemia, unspecified (principal); E11.65 Type 2 diabetes mellitus with hyperglycemia; N43.40 Spermatocele of epididymis, unspecified; I10 Essential (primary) hypertension; R06.02 Shortness of breath

== ENCOUNTER → 2024-12-09 10:37 | Outpatient (BNV) | payer OTHER, SELFPAY | PROVIDERS: Visit Provider Radiology Diagnostic Radiology | DX: R06.02 Shortness of breath (principal) | CPT/HCPCS: 71046 ==

== ENCOUNTER 2025-05-06 14:56 | Outpatient (AMB) | payer OTHER, SELFPAY ==
[2025-05-06 15:10] VITALS: BP 146/94; PULSE 87; TEMP 36.3; O2SAT 96; BMI 39.5
--- NOTE | 2025-05-06 15:10 | A.OFFPC_ITS ---
Vital Signs 05/06/25 15:10 05/06/25 15:43 Height 5 ft 6 in Weight 245 lb BMI 39.5 BP 146/94 H 150/100 H Blood Pressure Location Lt brachial Lt brachial Position Sitting Sitting Pulse 87 Pulse Source Pulse Oximeter Temp 97.3 F Temp Source Temporal Artery Scan Pulse Oximetry (%) 96 Oxygen Delivery Method Room Air Intake Visit Reasons: f/u DM and HLD Hair Colorist Required: Yes Hair Colorist Language: Monegasque Cresariah Hair Colorist Name: [id number] Allergies No Known Allergies Allergy (Verified 05/06/25 15:19) Medication List - Last Reconciled 05/06/25 by Nissa Hernández PA-C amlodipine 10 mg PO DAILY atorvastatin 10 mg PO BEDTIME cholecalciferol (vitamin D3) 25 mcg PO DAILY [diabetic shoes As directed] diclofenac sodium 1% (Arthritis Pain (diclofenac)) 2 grams topical QID ibuprofen 400 mg PO Q8H PRN losartan 25 mg PO DAILY metformin 1,000 mg PO BIDWMEAL 90 days Tobacco use date assessed: 05/06/25 Dental Screening Dental Screen Date: 09/09/24 Did you have a dental visit in the last 12 months?: No Did you have a dental problem in the last 6 months where you did not have access to dental care?: No Was dental information given to patient?: No HPI f/u DM and HLD HPI Details 45-year-old male with past medical histo ry of hypertension, diabetes mellitus last seen 11/2024 coming in for follow up. [place] [id number] was used for the duration of this visit. Presenting with diabetes mellitus. His blood sugar level has increased from 7.2% to 8%, despite being on the maximum dose of metformin. The patient admits to not taking all prescribed medications consistently while away. The patient also presents with hypertension. He has been prescribed losartan and amlodipine but has missed doses, leading to elevated blood pressure readings. The patient reports experiencing dyspnea, which has not been evaluated with a pulmonary function test due to missed appointments. The patient reports hip pain, particularly exacerbated by cold weather, and is seeking a handicap placard for easier access to buildings. An x-ray was previously conducted to assess the condition of the hips which revealed OA and was evaluated by orthopedics. [facility] Surgical History No pertinent past surgical history Social History Housing: Other Housing Other:: Intermediate Alcohol intake: current Alcohol intake frequency: holidays/special occasions only Alcohol type: other Patient Tobacco Use Status: Never used Tobacco e-Cigarette/Vaping Use: Never Used Second Hand Smoke Exposure: No service: No Current occupational status: unemployed Cognitive needs: No Hearing needs: No Vision needs: No Questionnaire PHQ-9 Over the last 2 weeks, how often have you been bothered by any of the following problems? 1. Little interest or pleasure in doing things: not at all 2. Feeling down, depressed, or hopeless: not at all 3. Trouble falling or staying asleep, or sleeping too much: not at all 4. Feeling tired or having little energy: not at all 5. Poor appetite or overeating: not at all 6. Feeling bad about yourself - or that you are a failure or have let yourself or your family down: not at all 7. Trouble concentrating on things, such as reading the newspaper or watching television: not at all 8. Moving or speaking so slowly that other people could have noticed. Or the opposite - being so fidgety or restless that you have been moving around a lot more than usual: not at all 9. Thoughts that you would be better off or of hurting yourself in some way: not at all Total score: 0 Source: Developed by Drs. Joni Haas, Beth Lou, Rakan Mauricio and colleagues, with an educational karan from [employer]. Thrive Questionnaire Date Thrive assessed: 05/06/25 I am a: Patient What is your living situation today?: I choose not to answer this question Within the past 12 months, did the food you bought not last and you didn't have the money to get more?: I choose not to answer this question Within the past 12 months, did you worry whether your food would run out before you got money to buy more?: I choose not to answer this question Do you have trouble paying for medicines?: No Do you have trouble getting transportation to medical appointments?: No Do you have trouble paying your heating and electricity bill?: No Do you have trouble taking care of your child, family member or friend?: No Do you have trouble with day-to-day activities such as bathing, preparing meals, shopping, managing finances, etc.?: No Are you currently unemployed and looking for a job?: No Are you interested in more education?: No Please select the resources that you would like help with: None Currently or been in a relationship where the following occur: No concerns reported THRIVE Score: 0 AUDIT C Alcohol Use Questionnaire (AUDIT-C) 1. How often do you have a drink containing alcohol?: Monthly or less 2. How many drinks containing alcohol do you have on a typical day when you are drinking?: 1 or 2 3. How often do you have six or more drinks on one occasion?: Never Total Score: 1 SKY-7 AMB Questionnaire SKY-7 Date SKY - 7 assessed: 09/09/24 Feeling nervous, anxious, or on edge: 0 = Not at all Not being able to stop or control worryin = Not at all Worrying too much about different things: 0 = Not at all Trouble relaxin = Not at all Being so restless that it is hard to sit still: 0 = Not at all Becoming easily annoyed or irritable: 0 = Not at all Feeling afraid as if something awful might happen: 0 = Not at all Total SKY-7 score (0-4 normal; 5-9 mild; 10-14 moderate; 15-21 severe): 0 Source: Developed by Drs. Joni Haas, Beth Lou, Rakan Mauricio and colleagues, with an educational karan from [employer]. Review of Systems Const Denies body aches, Denies chills, Denies fever(s), Denies headache(s) and Denies poor appetite Eyes Reports no additional complaints ENT Denies dysphagia, Denies dizziness, Denies headache(s) and Denies odynophagia Card Denies chest pain, Denies syncope, Denies edema, Denies irregular heart rhythm, Denies lightheadedness and Denies dyspnea Resp Denies cough and Denies dyspnea GI Denies abdominal pain, Denies constipation, Denies dysphagia, Denies diarrhea, Denies nausea, Denies odynophagia and Denies vomiting Reports no additional complaints Musc Reports no additional complaints and Denies abnormal gait Skin/Breast Reports system reviewed and no additional complaints, except as documented Neuro Denies abnormal gait, Denies dizziness, Denies syncope and Denies headache(s) Psych Reports no additional complaints Physical exam (Primary Care) Vital Signs: Last Vital Signs Temp 97.3 F 05/06/25 15:10 Pulse 87 05/06/25 15:10 BP 146/94 H 05/06/25 15:10 Pulse Ox 96 05/06/25 15:10 Oxygen Delivery Method Room Air 05/06/25 15:10 BMI result Body Mass Index 39.5 Tobacco/Smoking Status: Tobacco use Status Tobacco use date assessed 05/06/25 05/06/25 15:18 Patient Tobacco Use Status Never used Tobacco 05/06/25 15:18 Tobacco use type 12/09/24 09:56 e-Cigarette/Vaping Use Never Used 05/06/25 15:18 PHQ-9: PHQ-9 Score PHQ-9: Total score 0 05/06/25 15:18 Thrive Assessment: Date of Thrive Assessment Date Thrive assessed 05/06/25 05/06/25 15:18 Currently or been in a relationship where the following occur: No concerns reported Const General: cooperative, healthy appearing, comfortable and no acute distress Orientation/consciousness: patient oriented x3 HENMT Head: Yes normocephalic Ears: hearing grossly normal bilaterally General nose exam: Normal external nose present Eyes General: appearance normal, both eyes and all related structures Conjunctivae: conjunctivae normal Neck Neck: Yes full ROM and Yes no lymphadenopathy Resp Effort & Inspection: normal respiratory effort Auscultation: clear to auscultation bilaterally, no crackles, no rales, no rhonchi and no wheezes Cardio Rate: regular rate Rhythm: regular rhythm Skin General skin exam: no rashes or lesions noted Neuro General: patient oriented x3 Gait exam (Neuro): Normal gait present Extrem General: Yes normal to inspection, Yes full ROM and No edema Psych Affect: normal affect Attitude: cooperative Insight: Good insight present (Psych) Judgement: Good judgement present (Psych) Results AMB Hemoglobin A1c AMB Hemoglobin A1c 8.0 % Last Edit by Bettye Ware CMA on 05/06/25 15:19 Coding Level of Care Code Est Pt Level 4 (69538) Diagnoses Primary hypertension I10 Hypertension type: primary hypertension Hypercholesterolemia E78.00 Type 2 diabetes mellitus with hyperglycemia, without long-term current use of insulin E11.65 Diabetes mellitus type: type 2 Diabetes mellitus ferry terminal supervisor insulin use: without jail use Diabetes mellitus complication status: with hyperglycemia Shortness of breath R06.02 Bilateral hip pain M25.551; M25.552 Assessment & Plan Assessment & Plan (1) Hypertension: Code(s): I10 - Essential (primary) hypertension Category: Medical Qualifiers: Hypertension type: primary hypertension Qualified Code(s): I10 - Essential (primary) hypertension Plan: Continue on current blood pressure medication. Avoid salt intake and encourage healthy diet and regular exercise. He states he has been taking his medication as prescribed. Plan to increase Losartan to 50mg and follow up in two months. (2) Hypercholesterolemia: Code(s): E78.00 - Pure hypercholesterolemia, unspecified Category: Medical Plan: Avoid foods that are high in cholesterol such as red meat, fried foods, eggs and baked goods. Triglyceride goal of less than 150 and LDL goal of less than 100. Reminded about blood work. (3) Diabetes mellitus: Code(s): E11.9 - Type 2 diabetes mellitus without complications Category: Medical Qualifiers: Diabetes mellitus type: type 2 Diabetes mellitus ferry terminal supervisor insulin use: without jail use Diabetes mellitus complication status: with hyperglycemia Qualified Code(s): E11.65 - Type 2 diabetes mellitus with hyperglycemia Plan: Decrease the amount of carbohydrates such as pasta, bread, rice, and potatoes and limit the amount of sweets. Although fruits are generally healthy they should be eaten in moderation as they are still high in sugar. Hemoglobin A1c goal of less that 7% and A1c in the clinic today 8%. At this time place in add Jardiance to medication regimen and continue on Metformin. (4) Shortness of breath: Code(s): R06.02 - Shortness of breath Category: Medical Plan: 11/2024: Patient complaining of intermittent shortness of breath with no apparent pattern. He does have shortness of breath associated with eating late at night. Advised patient to avoid eating 3-4 hours prior to bedtime as this is likely a result of acid reflux. Plan to obtain chest x-ray and blood work for further evaluation. Also plan to obtain sleep study and pulmonary function testing for further evaluation. I reviewed with patient red flag symptoms and when to present for re-evaluation. Lungs are clear to auscultation today. Reinforced above and re-ordered for missed tests. (5) Bilateral hip pain: Code(s): M25.551 - Pain in right hip; M25.552 - Pain in left hip Category: Medical Plan: The patient experiences hip pain exacerbated by cold weather, and a handicap placard is being considered. An x-ray has been conducted to assess the hip co ndition. Plan I discussed with the patient the need to improve glycemic control by adding Jardiance to his regimen, given the increase in his blood sugar levels. We also talked about increasing the dosage of losartan to manage his hypertension more effectively. The importance of rescheduling the pulmonary function test to evaluate his dyspnea was emphasized. I agreed to assist with obtaining a handicap placard for his hip pain, contingent upon x-ray results. This note was constructed using voice recognition software. While every effort has been made to ensure accuracy and documentation nurse, still areas may have been included sometimes these areas may affect the content or meeting of the given symptoms. Total time spent caring for the patient today was 20 minutes. This includes time spent before the visit reviewing the chart, time spent during the visit, and time spent after the visit and documentation. Patient was informed and verbally consented to the use of an ambient scribe for clinic note documentation during this visit. Orders: Orders RT home sleep study Today R06.02 - Shortness of breath PFT pulmonary function test Today R06.02 - Shortness of breath AMB Hemoglobin A1c Today Z13.9 - Encounter for screening, unspecified Medications: New empagliflozin (Jardiance) 10 mg PO DAILY 90 tabs 0RF losartan 50 mg PO DAILY 90 tabs 0RF Refilled atorvastatin 10 mg PO BEDTIME 90 tabs 0RF amlodipine 10 mg PO DAILY 90 tabs 0RF diclofenac sodium 1% (Arthritis Pain (diclofenac)) apply to single elbow, wrist or hand; for hand includes palm/fingers/back of hand 2 grams topical QID 100 grams 0RF ibuprofen 400 mg PO Q8H PRN 20 tabs 1RF pain Discontinued losartan Discontinued Reason: Patient no longer taking 25 mg PO DAILY 90 tabs 1RF
[2025-05-06 15:43] VITALS: BP 150/100
== END 2025-05-06 16:00 | disposition home or self-care (01) ==
LOC: HO.HMCH 14:57
DX: I10 Essential (primary) hypertension (principal); E78.00 Pure hypercholesterolemia, unspecified; E11.65 Type 2 diabetes mellitus with hyperglycemia; R06.02 Shortness of breath; M25.551 Pain in right hip; M25.552 Pain in left hip; Z13.9 Encounter for screening, unspecified

== ENCOUNTER → 2025-05-06 14:56 | Outpatient (BNVA) | payer MEDICAID, OTHER, SELFPAY | DX: I10 Essential (primary) hypertension (principal); E78.00 Pure hypercholesterolemia, unspecified; E11.65 Type 2 diabetes mellitus with hyperglycemia; R06.02 Shortness of breath; M25.551 Pain in right hip; M25.552 Pain in left hip; Z13.30 Encounter for screening examination for mental health and behavioral disorders, unspecified | CPT/HCPCS: 83036; 99212 ==

== ENCOUNTER 2025-05-11 14:51 | Outpatient (REF) | payer MEDICAID, OTHER, SELFPAY ==
--- NOTE | 2025-05-11 15:30 | PFT_ITS ---
Indication: Dyspnea Spirometry FEV1 to FVC 86%; FEV1 3.95 L; FVC 4.6 L. No significant response to bronchodilators noted Lung Volumes Total lung capacity 94% predicted Diffusion Capacity DLCO 114% predicted Comparisons None Interpretation No obstructive nor restrictive ventilatory defects identified. No significant response to bronchodilators noted. Normal lung volume. Diffusing capacity also within normal limits. The PFTs are consistent with normal lung mechanics. No clear explanation for patient's symptoms of dyspnea. MTDD
[2025-05-11 15:32] VITALS: PULSE 110; O2SAT 96
== END 2025-05-11 14:52 | disposition home or self-care (01) ==
LOC: HO.RESP 14:51
DX: R06.02 Shortness of breath (principal)
CPT/HCPCS: 94010; 94640; 94727; 94729

== ENCOUNTER → 2025-05-11 15:30 | Outpatient (BNV) | payer MEDICAID, SELFPAY | PROVIDERS: Visit Provider Hospitalist | DX: R06.00 Dyspnea, unspecified (principal) | CPT/HCPCS: 94060; 94727; 94729 ==

== ENCOUNTER 2025-07-07 08:26 | Outpatient (AMB) | payer OTHER, SELFPAY ==
--- NOTE | 2025-07-07 08:37 | MHC.PC.OV ---
Vital Signs 07/07/25 08:38 07/07/25 09:03 Height 5 ft 6 in Weight 239 lb 2 oz BMI 38.6 BP 140/100 H 138/98 H Blood Pressure Location Lt brachial Lt brachial Position Sitting Sitting Pulse 115 H 88 Pulse Source Pulse Oximeter Auscultation Temp 98.1 F Temp Source Temporal Artery Scan Pulse Oximetry (%) 98 Oxygen Delivery Method Room Air Intake Visit Reasons: f/u HTN Professor Of Chemical Engineering Required: Yes Professor Of Chemical Engineering Language: Ivan Nair Professor Of Chemical Engineering Name: [id number] Allergies No Known Allergies Allergy (Verified 07/07/25 08:55) Medication List - Last Reconciled 07/07/25 by Nissa Hernández PA-C amlodipine 10 mg PO DAILY atorvastatin 10 mg PO BEDTIME cholecalciferol (vitamin D3) 25 mcg PO DAILY [diabetic shoes As directed] diclofenac sodium 1% (Arthritis Pain (diclofenac)) 2 grams topical QID empagliflozin (Jardiance) 10 mg PO DAILY ibuprofen 400 mg PO Q8H PRN losartan 50 mg PO DAILY metformin 1,000 mg PO BIDWMEAL 90 days Tobacco use date assessed: 05/06/25 Dental Screening Dental Screen Date: 09/09/24 Did you have a dental visit in the last 12 months?: No Did you have a dental problem in the last 6 months where you did not have access to dental care?: No Was dental information given to patient?: No HPI f/u HTN HPI Details 45-year-old male with past medical history of hypertension, diabetes mellitus last seen 04/2025 coming in for follow up. Professor Of Chemical Engineering Mehranly [id number] was used for the duration of this visit. Presenting for a follow-up visit for management of chronic conditions. The patient's medications include losartan, which was recently increased, and Jardiance, which was recently added. Today, the patient did not take any medications, including for blood pressure, prior to the appointment. The patient does not monitor blood pressure or blood sugar at home due to not having the devices. The patient reports hip pain has improved with the use of a topical gel. The patient experiences occasional shortness of breath, which the patient associates with eating bread. A prior workup for dyspnea, including a chest x-ray and pulmonary function testing, was normal. [facility] Surgical History No pertinent past surgical history Social History Housing: Other Housing Other:: Longterm Alcohol intake: current Alcohol intake frequency: holidays/special occasions only Alcohol type: other Patient Tobacco Use Status: Never used Tobacco e-Cigarette/Vaping Use: Never Used Second Hand Smoke Exposure: No service: No Current occupational status: unemployed Cognitive needs: No Hearing needs: No Vision needs: No Questionnaire PHQ-9 Over the last 2 weeks, how often have you been bothered by any of the following problems? 1. Little interest or pleasure in doing things: not at all 2. Feeling down, depressed, or hopeless: not at all 3. Trouble falling or staying asleep, or sleeping too much: not at all 4. Feeling tired or having little energy: not at all 5. Poor appetite or overeating: not at all 6. Feeling bad about yourself - or that you are a failure or have let yourself or your family down: not at all 7. Trouble concentrating on things, such as reading the newspaper or watching television: not at all 8. Moving or speaking so slowly that other people could have noticed. Or the opposite - being so fidgety or restless that you have been moving around a lot more than usual: not at all 9. Thoughts that you would be better off or of hurting yourself in some way: not at all Total score: 0 Source: Developed by Drs. Joni Haas, Beth Lou, Rakan Mauricio and colleagues, with an educational karan from [employer]. Thrive Questionnaire Date Thrive assessed: 05/06/25 I am a: Patient What is your living situation today?: I choose not to answer this question Within the past 12 months, did the food you bought not last and you didn't have the money to get more?: I choose not to answer this question Within the past 12 months, did you worry whether your food would run out before you got money to buy more?: I choose not to answer this question Do you have trouble paying for medicines?: No Do you have trouble getting transportation to medical appointments?: No Do you have trouble paying your heating and electricity bill?: No Do you have trouble taking care of your child, family member or friend?: No Do you have trouble with day-to-day activities such as bathing, preparing meals, shopping, managing finances, etc.?: No Are you currently unemployed and looking for a job?: No Are you interested in more education?: No Please select the resources that you would like help with: None Currently or been in a relationship where the following occur: No concerns reported THRIVE Score: 0 AUDIT C Alcohol Use Questionnaire (AUDIT-C) 1. How often do you have a drink containing alcohol?: Monthly or less 2. How many drinks containing alcohol do you have on a typical day when you are drinking?: 1 or 2 3. How often do you have six or more drinks on one occasion?: Never Total Score: 1 SKY-7 AMB Questionnaire SKY-7 Date SKY - 7 assessed: 09/09/24 Feeling nervous, anxious, or on edge: 0 = Not at all Not being able to stop or control worryin = Not at all Worrying too much about different things: 0 = Not at all Trouble relaxin = Not at all Being so restless that it is hard to sit still: 0 = Not at all Becoming easily annoyed or irritable: 0 = Not at all Feeling afraid as if something awful might happen: 0 = Not at all Total SKY-7 score (0-4 normal; 5-9 mild; 10-14 moderate; 15-21 severe): 0 Source: Developed by Drs. Joni Haas, Beth Lou, Rakan Mauricio and colleagues, with an educational karan from [employer]. Review of Systems Const Denies body aches, Denies chills, Denies fever(s), Denies headache(s) and Denies poor appetite Eyes Reports no additional complaints ENT Denies dysphagia, Denies dizziness, Denies headache(s) and Denies odynophagia Card Denies chest pain, Denies syncope, Denies edema, Denies irregular heart rhythm, Denies lightheadedness and Denies dyspnea Resp Denies cough and Denies dyspnea GI Denies abdominal pain, Denies constipation, Denies dysphagia, Denies diarrhea, Denies nausea, Denies odynophagia and Denies vomiting Reports no additional complaints Musc Reports no additional complaints and Denies abnormal gait Skin/Breast Reports system reviewed and no additional complaints, except as documented Neuro Denies abnormal gait, Denies dizziness, Denies syncope and Denies headache(s) Psych Reports no additional complaints Physical exam (Primary Care) Vital Signs: Last Vital Signs Temp 98.1 F 07/07/25 08:38 Pulse 88 07/07/25 09:03 BP 138/98 H 07/07/25 09:03 Pulse Ox 98 07/07/25 08:38 Oxygen Delivery Method Room Air 07/07/25 08:38 BMI result Body Mass Index 38.6 Tobacco/Smoking Status: Tobacco use Status Tobacco use date assessed 05/06/25 07/07/25 08:49 Patient Tobacco Use Status Never used Tobacco 07/07/25 08:49 Tobacco use type 12/09/24 09:56 e-Cigarette/Vaping Use Never Used 07/07/25 08:49 PHQ-9: PHQ-9 Score PHQ-9: Total score 0 07/07/25 10:06 Thrive Assessment: Date of Thrive Assessment Date Thrive assessed 05/06/25 07/07/25 08:49 Currently or been in a relationship where the following occur: No concerns reported Const General: cooperative, healthy appearing, comfortable and no acute distress Orientation/consciousness: patient oriented x3 HENMT Head: Yes normocephalic Ears: hearing grossly normal bilaterally General nose exam: Normal external nose present Eyes General: appearance normal, both eyes and all related structures Conjunctivae: conjunctivae normal Neck Neck: Yes full ROM and Yes no lymphadenopathy Resp Effort & Inspection: normal respiratory effort Auscultation: clear to auscultation bilaterally, no crackles, no rales, no rhonchi and no wheezes Cardio Rate: regular rate Rhythm: regular rhythm Skin General skin exam: no rashes or lesions noted Neuro General: patient oriented x3 Gait exam (Neuro): Normal gait present Extrem General: Yes normal to inspection, Yes full ROM and No edema Psych Affect: normal affect Attitude: cooperative Insight: Good insight present (Psych) Judgement: Good judgement present (Psych) Coding Level of Care Code Est Pt Level 3 (51171) Diagnoses Primary hypertension I10 Hypertension type: primary hypertension Hypercholesterolemia E78.00 Type 2 diabetes mellitus with hyperglycemia, without long-term current use of insulin E11.65 Diabetes mellitus complication status: with hyperglycemia Diabetes mellitus long term care social worker insulin use: without [facility] use Diabetes mellitus type: type 2 Shortness of breath R06.02 Primary localized osteoarthritis of left hip M16.12 Assessment & Plan Assessment & Plan (1) Hypertension: Code(s): I10 - Essential (primary) hypertension Category: Medical Qualifiers: Hypertension type: primary hypertension Qualified Code(s): I10 - Essential (primary) hypertension Plan: The patient's blood pressure was elevated today at 130/98 mmHg on a repeat check, which is understandable as the patient did not take the blood pressure medication this morning. A prescription for a blood pressure cuff will be sent to a medical supply store for home monitoring. The importance of taking blood pressure medications daily and prior to future appointments was discussed. All of the patient's medications, including losartan, will be refilled. (2) Hypercholesterolemia: Code(s): E78.00 - Pure hypercholesterolemia, unspecified Category: Medical Plan: Avoid foods that are high in cholesterol such as red meat, fried foods, eggs and baked goods. Triglyceride goal of less than 150 and LDL goal of less than 100. Reminded about blood work. (3) Diabetes mellitus: Code(s): E11.9 - Type 2 diabetes mellitus without complications Category: Medical Qualifiers: Diabetes mellitus complication status: with hyperglycemia Diabetes mellitus [facility] insulin use: without [facility] use Diabetes mellitus type: type 2 Qualified Code(s): E11.65 - Type 2 diabetes mellitus with hyperglycemia Plan: Decrease the amount of carbohydrates such as pasta, bread, rice, and potatoes and limit the amount of sweets. Although fruits are generally healthy they should be eaten in moderation as they are still high in sugar. Hemoglobin A1c goal of less that 7% and A1c in the clinic today 8%. Jardiance was added to medication regimen and patient has been more compliant. He will have repeat A1c in one month. The patient is not currently able to monitor blood sugars at home. I will attempt to send a prescription for a glucose monitor to [facility] and seek insurance approval. Fasting lab work has been ordered. The patient will continue Jardiance, and all prescriptions will be refilled. A follow-up visit is scheduled in four months to review blood sugar control. (4) Shortness of breath: Code(s): R06.02 - Shortness of breath Category: Medical Plan: Patient complaining of intermittent shortness of breath with no apparent pattern. He does have shortness of breath associated with eating late at night. Advised patient to avoid eating 3-4 hours prior to bedtime as this is likely a result of acid reflux. Chest XR and PFTs are normal. I reviewed with patient red flag symptoms and when to present for re-evaluation. Lungs are clear to auscultation today. (5) Primary localized osteoarthritis of left hip: Code(s): M16.12 - Unilateral primary osteoarthritis, left hip Category: Medical Plan: Continue with Voltaren prn Plan This note was constructed using voice recognition software. While every effort has been made to ensure accuracy and manager of business, still areas may have been included sometimes these areas may affect the content or meeting of the given symptoms. Total time spent caring for the patient today was 20 minutes. This includes time spent before the visit reviewing the chart, time spent during the visit, and time spent after the visit and documentation. Patient was informed and verbally consented to the use of an ambient scribe for clinic note documentation during this visit. Orders: Orders Complete Blood Count Auto Diff Today E11.65 - Type 2 diabetes mellitus with hyperglycemia, Z13.0 - Encounter for screening for diseases of the blood and blood-forming organs and certain disorders involving the immune mechanism Vitamin B12 and Folate Today E11.65 - Type 2 diabetes mellitus with hyperglycemia, Z13.21 - Encounter for screening for nutritional disorder PSA, Ultra Sensitive Today E11.65 - Type 2 diabetes mellitus with hyperglycemia, Z12.5 - Encounter for screening for malignant neoplasm of prostate Hemoglobin A1c Today E11.65 - Type 2 diabetes mellitus with hyperglycemia Comprehensive Met. Panel Today E11.65 - Type 2 diabetes mellitus with hyperglycemia, Z00.00 - Encounter for general adult medical examination without abnormal findings TSH reflex Free T4 Today E11.65 - Type 2 diabetes mellitus with hyperglycemia, Z13.29 - Encounter for screening for other suspected endocrine disorder Vitamin D 25-OH Total Today E11.65 - Type 2 diabetes mellitus with hyperglycemia, Z13.21 - Encounter for screening for nutritional disorder Medications: New blood pressure test kit-large As directed; to check BP daily 1 ea 0RF I10 - Essential (primary) hypertension blood sugar diagnostic (fishfishmeuch Ultra Test strips) As directed; to check sugars daily 100 ea 1RF E11.65 - Type 2 diabetes mellitus with hyperglycemia lancets (SolumTouch Delica Plus Lancet) As directed; to check sugars daily 100 ea 0RF E11.65 - Type 2 diabetes mellitus with hyperglycemia blood-glucose meter (OneTouch Ultra2 Meter) As directed; to check sugars daily 1 ea 0RF E11.65 - Type 2 diabetes mellitus with hyperglycemia Refilled cholecalciferol (vitamin D3) 25 mcg PO DAILY 90 caps 1RF ibuprofen 400 mg PO Q8H PRN 20 tabs 1RF pain empagliflozin (Jardiance) 10 mg PO DAILY 90 tabs 0RF losartan 50 mg PO DAILY 90 tabs 0RF atorvastatin 10 mg PO BEDTIME 90 tabs 0RF amlodipine 10 mg PO DAILY 90 tabs 0RF diclofenac sodium 1% (Arthritis Pain (diclofenac)) apply to single elbow, wrist or hand; for hand includes palm/fingers/back of hand 2 grams topical QID 100 grams 0RF E11.65 - Type 2 diabetes mellitus with hyperglycemia
[2025-07-07 08:38] VITALS: BP 140/100; PULSE 115; TEMP 36.7; O2SAT 98; BMI 38.6
[2025-07-07 09:03] VITALS: BP 138/98; PULSE 88
== END 2025-07-07 09:15 | disposition home or self-care (01) ==
LOC: HO.HMCH 08:27
DX: I10 Essential (primary) hypertension (principal); E78.00 Pure hypercholesterolemia, unspecified; E11.65 Type 2 diabetes mellitus with hyperglycemia; R06.02 Shortness of breath; M16.12 Unilateral primary osteoarthritis, left hip

== ENCOUNTER → 2025-07-07 08:26 | Outpatient (BNVA) | payer MEDICAID, OTHER, SELFPAY | DX: I10 Essential (primary) hypertension (principal); R53.83 Other fatigue; E78.00 Pure hypercholesterolemia, unspecified; E11.65 Type 2 diabetes mellitus with hyperglycemia; R06.02 Shortness of breath; M16.12 Unilateral primary osteoarthritis, left hip | CPT/HCPCS: 99212 ==

== ENCOUNTER → 2025-07-20 14:23 | Outpatient (REF) | payer MEDICAID, OTHER, SELFPAY | LOC: HO.SL 14:23 | DX: G47.33 Obstructive sleep apnea (adult) (pediatric) (principal); R06.02 Shortness of breath | CPT/HCPCS: 95806 ==

== ENCOUNTER → 2025-07-20 14:47 | Outpatient (BNV) | payer MEDICAID, SELFPAY | PROVIDERS: Visit Provider Internal Medicine | DX: G47.33 Obstructive sleep apnea (adult) (pediatric) (principal) | CPT/HCPCS: 95806 ==